=== PATIENT | male | born 2000 | race African-American/Black ===

== ENCOUNTER → 2018-12-20 | Outpatient (CLI) | payer OTHER ==
--- NOTE | 2018-12-20 15:28 | Diagnostic Imaging Report ---
EXAMINATION: Right hand at 01:56 p.m. INDICATION: Hand pain. FINDINGS: Three views were obtained. There are no prior studies available for comparison. There is no fracture, dislocation, or acute bony abnormality evident. The radiocarpal joint is well maintained. The soft tissues are unremarkable. IMPRESSION: There is no evidence for an acute bony abnormality. Dictated by: Dictated on workstation # [id number]
== END ==
LOC: RAD FS 13:45
PROVIDERS: ATTEND Nurse Practitioner
DX: M79.641 Pain in right hand (principal)
CPT/HCPCS: 73130